=== PATIENT | female | born 1985 | race Caucasian/White ===

== ENCOUNTER 2019-10-01 06:51 | Day surgery (SDC) | payer BC ==
[2019-09-30 09:39] LABS: BLOOD UREA NITROGEN,BUN 13 mg/dL (7.0-18.0); CARBON DIOXIDE,CO2 26.5 mmol/L (21.0-32.0); CHLORIDE,CL 107 mmol/L (98-107); GLUCOSE RANDOM 93 mg/dL (74-106); POTASSIUM,K 4.3 mmol/L (3.5-5.1); SODIUM,NA 141 mmol/L (136-145)
[~2019-10-01 06:51] MED LIST: Sodium Chloride 0.9% 10 ML SDV IV PRN; Sodium Chloride 0.9% 10 ML Syringe FLUSH PRN; Sodium Chloride 0.9% 2.5 ML Syringe FLUSH PRN; ceFAZolin 2 GM in Premix Bag 1 BAG IV ONE
[2019-10-01] MEDS ORDERED: Midazolam 1 MG/ML 2 ML SDV ONE (07:02)
[2019-10-01] MEDS ORDERED: fentaNYL 100 MCG/2 ML SDV ONE ×2 (07:02→08:22)
[2019-10-01] MEDS ORDERED: Propofol 200 MG/20 ML SDV ONE ×2 (07:02→08:17)
--- NOTE | 2019-10-01 07:27 | PCM.PREANE ---
Preanesthetic Assessment - Anesthesia/Transfusion/Family Hx Anesthesia History: Prior Anesthesia Without Reaction Family History of Anesthesia Reaction: No Transfusion History: No Prior Transfusion(s) - Review of Systems General: No Symptoms Pulmonary: No Symptoms Cardiovascular: No Symptoms Gastrointestinal: No Symptoms Neurological: No Symptoms Other: Reports: None - Physical Assessment Height: 5 ft 7 in Weight: 106.594 kg ASA Class: 1 Mental Status: Alert & Oriented x3 Airway Class: Mallampati = 2 Dentition: Reports: Normal Dentition ROM/Head Extension: Full Lungs: Clear to Auscultation, Normal Respiratory Effort Cardiovascular: Regular Rate, Regular Rhythm - Lab Values: Laboratory Last Values WBC 4.10 K/uL (4.0-11.0) 09/30/19 09:15 RBC 4.54 M/uL (4.30-5.90) 09/30/19 09:15 Hgb 14.2 g/dL (12.0-16.0) 09/30/19 09:15 Hct 41.5 % (36.0-46.0) 09/30/19 09:15 MCV 91.4 fL (80.0-98.0) 09/30/19 09:15 MCH 31.3 pg (27.0-32.0) 09/30/19 09:15 MCHC 34.2 g/dL (31.0-37.0) 09/30/19 09:15 RDW Std Deviation 43.6 fl (28.0-62.0) 09/30/19 09:15 RDW Coeff of Joseph 13 % (11.0-15.0) 09/30/19 09:15 Plt Count 228 K/uL (150-400) 09/30/19 09:15 MPV 10.40 fL (7.40-12.00) 09/30/19 09:15 Nucleated RBC % 0.0 /100WBC 09/30/19 09:15 Nucleated RBCs # 0 K/uL 09/30/19 09:15 Sodium 141 mmol/L (136-145) 09/30/19 09:15 Potassium 4.3 mmol/L (3.5-5.1) 09/30/19 09:15 Chloride 107 mmol/L (98-107) 09/30/19 09:15 Carbon Dioxide 26.5 mmol/L (21.0-32.0) 09/30/19 09:15 BUN 13 mg/dL (7.0-18.0) 09/30/19 09:15 Creatinine 1.0 mg/dL (0.6-1.0) 09/30/19 09:15 Est Cr Clr Drug Dosing 77.08 mL/min 09/30/19 09:15 Estimated GFR (MDRD) > 60.0 ml/min 09/30/19 09:15 Glucose 93 mg/dL (74-106) 09/30/19 09:15 Calcium 8.3 mg/dL (8.5-10.1) L 09/30/19 09:15 HCG, Qual NEGATIVE (NEG) 09/30/19 09:15 Blood Type A POSITIVE 09/30/19 09:15 Antibody Screen NEGATIVE 09/30/19 09:15 - Allergies Allergies/Adverse Reactions: Allergies Allergy/AdvReac Type Severity Reaction Status Date / Time No Known Allergies Allergy Verified 10/01/19 07:26 - Blood Blood Available: No - Anesthesia Plan Pre-Op Medication Ordered: None - Acknowledgements Anesthesia Type Planned: General Anesthesia Pt an Appropriate Candidate for the Planned Anesthesia: Yes Alternatives and Risks of Anesthesia Discussed w Pt/Guardian: Yes Pt/Guardian Understands and Agrees with Anesthesia Plan: Yes Additional Comments: pmh: denied plan: ga/lma PreAnesthesia Questionnaire Other HEENT History: wears glasses, top front flipper Cardiovascular History: Reports: None Respiratory History: Reports: None Gastrointestinal History: Reports: None Other Genitourinary History: 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" [employer]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: Musculoskeletal History: Reports: None Neurological History: Reports: None Psychiatric History: Reports: None Endocrine/Metabolic History: Reports: Obesity/BMI 30+ Hematologic History: Reports: None Immunologic History: Reports: None Oncologic (Cancer) History: Reports: None Dermatologic History: Reports: Eczema - Past Surgical History Head Surgeries/Procedures: Reports: None HEENT Surgical History: Reports: None Cardiovascular Surgical History: Reports: None Respiratory Surgical History: Reports: None GI Surgical History: Reports: None Female Surgical History: Reports: Tubal Ligation, Other (See Below) Other Female 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 Endocrine Surgical History: Reports: None Neurological Surgical History: Reports: None Musculoskeletal Surgical History: Reports: None Oncologic Surgical History: Reports: None Dermatological Surgical History: Reports: None - SUBSTANCE USE Smoking Status *Q: Never Smoker - HOME MEDS Home Medications: Home Meds Ascorbate Calcium [Vitamin C] 1 tab PO DAILY 09/28/19 [History] Calcium Carbonate [Calcium] 1 tab PO DAILY 09/28/19 [History] Cholecalciferol (Vitamin D3) [Vitamin D3] 1 tab PO DAILY 09/28/19 [History] Cyanocobalamin (Vitamin B12) [Vitamin B12] 1,000 mcg PO DAILY 09/28/19 [History] Ginseng 1 tab PO DAILY 09/28/19 [History] - CURRENT (IN HOUSE) MEDS Current Meds: Current Medications Lactated Ringer's (Ringers, Lactated) 1,000 mls @ 125 mls/hr IV ASDIRECTED EZEQUIEL Sodium Chloride (Saline Flush) 10 ml FLUSH ASDIRECTED PRN PRN Reason: Keep Vein Open Sodium Chloride (Saline Flush) 2.5 ml FLUSH ASDIRECTED PRN PRN Reason: Keep Vein Open Sodium Chloride (Normal Saline) 10 ml IV ASDIRECTED PRN PRN Reason: IV Use Discontinued Medications Fentanyl (Sublimaze) Confirm Administered Dose 100 mcg .ROUTE .STK-MED ONE Stop: 10/01/19 07:03 Cefazolin Sodium/Dextrose 2 gm (/ Premix) 50 mls @ 100 mls/hr IV ONETIME ONE Stop: 09/30/19 09:24 Midazolam HCl (Versed 1 Mg/Ml) Confirm Administered Dose 2 mg .ROUTE .STK-MED ONE Stop: 10/01/19 07:03 Propofol (Diprivan 20 Ml) Confirm Administered Dose 200 mg .ROUTE .STK-MED ONE Stop: 10/01/19 07:03
[2019-10-01] MEDS ORDERED: Lactated Ringers 1,000 ML IV SCH ×2 (07:30)
[2019-10-01] MEDS ORDERED: Dexamethasone 4 MG/ML 5 ML MDV ONE (08:16)
--- NOTE | 2019-10-01 08:50 | PCM.OPNOTE ---
- General Post-Op/Procedure Note Date of Surgery/Procedure: 10/01/19 Operative Procedure(s): Endometrial ablation Post-Op Diagnosis: Same Anesthesia Technique: General ET Tube Primary Surgeon: Eran Laura Touch Up Edger: Octavia Leon in mLs: 20 Complications: None Condition: Good
--- NOTE | 2019-10-01 08:51 | PCM.DCSUM1 ---
Discharge Summary - Hospital Course Diagnosis: Stroke: No - Discharge Data Discharge Date: 10/01/19 Discharge Disposition: Home, Self-Care 01 Condition: Good - Referral to Home Health Primary Care Physician: Jeanie Ken DO - Patient Summary/Data Operative Procedure(s) Performed: Endometrial ablation - Patient Instructions Diet: Usual Diet as Tolerated Activity: As Tolerated Driving: Do Not Drive Showering/Bathing: May Shower - Discharge Plan Home Medications: Home Meds Ascorbate Calcium [Vitamin C] 1 tab PO DAILY 09/28/19 [History] Calcium Carbonate [Calcium] 1 tab PO DAILY 09/28/19 [History] Cholecalciferol (Vitamin D3) [Vitamin D3] 1 tab PO DAILY 09/28/19 [History] Cyanocobalamin (Vitamin B12) [Vitamin B12] 1,000 mcg PO DAILY 09/28/19 [History] Ginseng 1 tab PO DAILY 09/28/19 [History] - Discharge Summary/Plan Comment DC Time >30 min.: Yes - General Info Date of Service: 10/01/19 Functional Status: Reports: Pain Controlled - Review of Systems General: Reports: No Symptoms HEENT: Reports: No Symptoms Pulmonary: Reports: No Symptoms Cardiovascular: Reports: No Symptoms Gastrointestinal: Reports: No Symptoms Genitourinary: Reports: No Symptoms Musculoskeletal: Reports: No Symptoms Skin: Reports: No Symptoms Neurological: Reports: No Symptoms Psychiatric: Reports: No Symptoms - Patient Data Vitals - Most Recent: Last Vital Signs Temp 36.2 C 10/01/19 07:29 Pulse 72 10/01/19 07:29 Resp 16 10/01/19 07:29 BP 121/69 10/01/19 07:29 Pulse Ox 97 10/01/19 07:29 Weight - Most Recent: 106.594 kg Lab Results - Last 24 hrs: Laboratory Results - last 24 hr 09/30/19 09/30/19 09/30/19 Range/Units 09:15 09:15 09:15 WBC 4.10 (4.0-11.0) K/uL RBC 4.54 (4.30-5.90) M/uL Hgb 14.2 (12.0-16.0) g/dL Hct 41.5 (36.0-46.0) % MCV 91.4 (80.0-98.0) fL MCH 31.3 (27.0-32.0) pg MCHC 34.2 (31.0-37.0) g/dL RDW Std Deviation 43.6 (28.0-62.0) fl RDW Coeff of Joseph 13 (11.0-15.0) % Plt Count 228 (150-400) K/uL MPV 10.40 (7.40-12.00) fL Nucleated RBC % 0.0 /100WBC Nucleated RBCs # 0 K/uL Sodium 141 (136-145) mmol/L Potassium 4.3 (3.5-5.1) mmol/L Chloride 107 (98-107) mmol/L Carbon Dioxide 26.5 (21.0-32.0) mmol/L BUN 13 (7.0-18.0) mg/dL Creatinine 1.0 (0.6-1.0) mg/dL Est Cr Clr Drug Dosing 77.08 mL/min Estimated GFR (MDRD) > 60.0 ml/min Glucose 93 (74-106) mg/dL Calcium 8.3 L (8.5-10.1) mg/dL HCG, Qual NEGATIVE (NEG) Blood Type Antibody Screen 09/30/19 Range/Units 09:15 WBC (4.0-11.0) K/uL RBC (4.30-5.90) M/uL Hgb (12.0-16.0) g/dL Hct (36.0-46.0) % MCV (80.0-98.0) fL MCH (27.0-32.0) pg MCHC (31.0-37.0) g/dL RDW Std Deviation (28.0-62.0) fl RDW Coeff of Joseph (11.0-15.0) % Plt Count (150-400) K/uL MPV (7.40-12.00) fL Nucleated RBC % /100WBC Nucleated RBCs # K/uL Sodium (136-145) mmol/L Potassium (3.5-5.1) mmol/L Chloride (98-107) mmol/L Carbon Dioxide (21.0-32.0) mmol/L BUN (7.0-18.0) mg/dL Creatinine (0.6-1.0) mg/dL Est Cr Clr Drug Dosing mL/min Estimated GFR (MDRD) ml/min Glucose (74-106) mg/dL Calcium (8.5-10.1) mg/dL HCG, Qual (NEG) Blood Type A POSITIVE Antibody Screen NEGATIVE Med Orders - Current: Current Medications Lactated Ringer's (Ringers, Lactated) 1,000 mls @ 125 mls/hr IV ASDIRECTED EZEQUIEL Last Admin: 10/01/19 07:35 Dose: 125 mls/hr Documented by: Sodium Chloride (Saline Flush) 10 ml FLUSH ASDIRECTED PRN PRN Reason: Keep Vein Open Sodium Chloride (Saline Flush) 2.5 ml FLUSH ASDIRECTED PRN PRN Reason: Keep Vein Open Sodium Chloride (Normal Saline) 10 ml IV ASDIRECTED PRN PRN Reason: IV Use Discontinued Medications Dexamethasone (Dexamethasone) Confirm Administered Dose 20 mg .ROUTE .STK-MED ONE Stop: 10/01/19 08:17 Fentanyl (Sublimaze) Confirm Administered Dose 100 mcg .ROUTE .STK-MED ONE Stop: 10/01/19 07:03 Fentanyl (Sublimaze) Confirm Administered Dose 100 mcg .ROUTE .STK-MED ONE Stop: 10/01/19 08:23 Cefazolin Sodium/Dextrose 2 gm (/ Premix) 50 mls @ 100 mls/hr IV ONETIME ONE Stop: 09/30/19 09:24 Lactated Ringer's (Ringers, Lactated) 1,000 mls @ 125 mls/hr IV ASDIRECTED [facility] Midazolam HCl (Versed 1 Mg/Ml) Confirm Administered Dose 2 mg .ROUTE .STK-MED ONE Stop: 10/01/19 07:03 Propofol (Diprivan 20 Ml) Confirm Administered Dose 200 mg .ROUTE .STK-MED ONE Stop: 10/01/19 07:03 Propofol (Diprivan 20 Ml) Confirm Administered Dose 200 mg .ROUTE .STK-MED ONE Stop: 10/01/19 08:18 - Exam General: Reports: Alert, Oriented HEENT: Reports: Pupils Equal, Pupils Reactive, EOMI, Mucous Membr. Moist/[place] Neck: Reports: Supple Lungs: Reports: Clear to Auscultation, Normal Respiratory Effort Cardiovascular: Reports: Regular Rate, Regular Rhythm GI/Abdominal Exam: Normal Bowel Sounds, Soft, Non-Tender, No Organomegaly, No Distention, No Abnormal Bruit, No Mass, Pelvis Stable (Female) Exam: Normal External Exam, Normal Speculum Exam, Normal Bimanual Exam Rectal (Female) Exam: Normal Exam, Normal Rectal Tone Back Exam: Reports: Normal Inspection, Full Range of Motion Extremities: Normal Inspection, Normal Range of Motion, Non-Tender, No Pedal Edema, Normal Capillary Refill Skin: Reports: Warm, Dry, Intact Wound/Incisions: Reports: Healing Well Neurological: Reports: No New Focal Deficit Psy/Mental Status: Reports: Alert, Normal Affect, Normal Mood
--- NOTE | 2019-10-01 10:36 | PCM.POSTAN ---
POST ANESTHESIA ASSESSMENT - MENTAL STATUS Mental Status: Alert, Oriented - VITAL SIGNS Vital Signs: Last Vital Signs Temp 97.3 F 10/01/19 08:51 Pulse 62 10/01/19 09:17 Resp 14 10/01/19 09:17 BP 127/79 10/01/19 09:11 Pulse Ox 99 10/01/19 09:17 - RESPIRATORY Respiratory Status: Respiratory Rate WNL, Airway Patent, O2 Saturation Stable - CARDIOVASCULAR CV Status: Pulse Rate WNL, Blood Pressure Stable - GASTROINTESTINAL GI Status: No Symptoms - POST OP HYDRATION Hydration Status: Adequate & Stable
--- NOTE | 2019-10-01 10:36 | PCM48HPAN ---
Post Anesthesia Note - EVALUATION WITHIN 48HRS OF ANESTHETIC Vital Signs in Normal Range: Yes Patient Participated in Evaluation: Yes Respiratory Function Stable: Yes Airway Patent: Yes Cardiovascular Function Stable: Yes Hydration Status Stable: Yes Pain Control Satisfactory: Yes Nausea and Vomiting Control Satisfactory: Yes Mental Status Recovered: Yes Vital Signs: Last Vital Signs Temp 97.3 F 10/01/19 08:51 Pulse 62 10/01/19 09:17 Resp 14 10/01/19 09:17 BP 127/79 10/01/19 09:11 Pulse Ox 99 10/01/19 09:17
[2019-10-01 13:07] VITALS: BP 110/74; PULSE 52
--- NOTE | 2019-10-01 17:04 | OR ---
SURGEON: Eran Laura MD DATE OF PROCEDURE: 10/01/2019 PREOPERATIVE DIAGNOSIS: Menometrorrhagia. POSTOPERATIVE DIAGNOSIS: Menometrorrhagia. OPERATION PERFORMED: Endometrial ablation. PRIMARY SURGEON: Eran Laura MD WAFER FAB OPERATOR: Octavia Leon. ANESTHESIA: General with endotracheal intubation. ESTIMATED BLOOD LOSS: Less than 20 mL. COMPLICATIONS: None. INDICATIONS FOR SURGERY: [place] referred to the admit note. PROCEDURE IN DETAIL: The patient brought to the OR, properly identified, and after adequate level of anesthesia, the patient was placed in lithotomy position, prepped and draped in sterile fashion as usual. Straight catheter was used to empty the bladder and then cervix sequentially dilated to accommodate the small hysteroscope. Hysteroscopy was performed and there was no polyp and documentation of the endometrial lining was done. Once we did that, the cystoscope was removed, and the MyoSure ablation was in place, and after measuring the uterus and adjusted the ablation device to the measurement, the machine went and did the electronic checking and passed the electronic checking. Once passed electronic checking, we started the ablation for 2 minutes without any problem. After finishing the ablation, the device was removed and hysteroscopy reperformed and it showed adequate ablation and that was documented with the hysteroscopy. Satisfied with these findings, the hysteroscope was removed and the procedure ended. Instrument count was normal and after that the patient moved to recovery room in stable general condition. NENITA / SUZY /[id number]
== END 2019-10-01 10:30 | disposition home or self-care (01) ==
LOC: MW.SDS 06:51
PROVIDERS: ATTEND Obstetrics & Gynecology
DX: N92.1 Excessive and frequent menstruation with irregular cycle (principal); E66.9 Obesity, unspecified; Z68.37 Body mass index [BMI] 37.0-37.9, adult; Z79.899 Other long term (current) drug therapy
CPT/HCPCS: 36415; 58563; 80048; 84703; 85027; 86850; 86900; 86901; J1100; J2250; J2704; J3010; J7120

== ENCOUNTER 2020-04-07 06:39 | Day surgery (SDC) | payer BC ==
[2020-04-04 10:15] LABS: BLOOD UREA NITROGEN,BUN 10 mg/dL (7.0-18.0); CHLORIDE,CL 105 mmol/L (98-107); GLUCOSE RANDOM 89 mg/dL (74-106); POTASSIUM,K 3.5 mmol/L (3.5-5.1); SODIUM,NA 138 mmol/L (136-145)
[~2020-04-07 06:39] MED LIST changes: +Lactated Ringers 1,000 ML IV SCH; -Sodium Chloride 0.9% 10 ML Syringe FLUSH PRN
[2020-04-07] MEDS ORDERED: Midazolam 1 MG/ML 2 ML SDV ONE (06:43)
[2020-04-07] MEDS ORDERED: Propofol 200 MG/20 ML SDV ONE (06:43)
[2020-04-07] MEDS ORDERED: fentaNYL 250 MCG/5 ML SDV ONE (06:44)
[2020-04-07] MEDS ORDERED: Ondansetron 4 MG/2 ML SDV ONE (06:45)
[2020-04-07] MEDS ORDERED: Lidocaine 2% 5 ML SDV ONE (06:45)
[2020-04-07] MEDS ORDERED: Glycopyrrolate 0.2 MG/ML SDV ONE (06:45)
[2020-04-07] MEDS ORDERED: Ketorolac 30 MG/ML SDV ONE (06:45)
[2020-04-07] MEDS ORDERED: Rocuronium Bromide 50 MG/5 ML Syringe ONE (06:45)
--- NOTE | 2020-04-07 07:19 | PCM.PREANE ---
Preanesthetic Assessment - Anesthesia/Transfusion/Family Hx Anesthesia History: Prior Anesthesia Without Reaction Family History of Anesthesia Reaction: No Transfusion History: No Prior Transfusion(s) - Review of Systems General: No Symptoms Pulmonary: No Symptoms Cardiovascular: No Symptoms Gastrointestinal: No Symptoms Neurological: No Symptoms Other: Reports: None - Physical Assessment NPO Status Date: 04/06/20 Vital Signs: Last Vital Signs Temp 97.5 F 04/07/20 06:52 Pulse 92 04/07/20 06:52 Resp 16 04/07/20 06:52 BP 142/90 H 04/07/20 06:52 Pulse Ox 95 04/07/20 06:52 Height: 5 ft 6 in Weight: 104.78 kg ASA Class: 2 Mental Status: Alert & Oriented x3 Airway Class: Mallampati = 2 Dentition: Reports: Normal Dentition ROM/Head Extension: Full Lungs: Clear to Auscultation, Normal Respiratory Effort Cardiovascular: Regular Rate, Regular Rhythm - Lab Values: Laboratory Last Values WBC 5.78 K/uL (4.0-11.0) 04/04/20 09:45 RBC 4.77 M/uL (4.30-5.90) 04/04/20 09:45 Hgb 14.6 g/dL (12.0-16.0) 04/04/20 09:45 Hct 43.6 % (36.0-46.0) 04/04/20 09:45 MCV 91.4 fL (80.0-98.0) 04/04/20 09:45 MCH 30.6 pg (27.0-32.0) 04/04/20 09:45 MCHC 33.5 g/dL (31.0-37.0) 04/04/20 09:45 RDW Std Deviation 43.7 fl (28.0-62.0) 04/04/20 09:45 RDW Coeff of Joseph 13 % (11.0-15.0) 04/04/20 09:45 Plt Count 226 K/uL (150-400) 04/04/20 09:45 MPV 10.70 fL (7.40-12.00) 04/04/20 09:45 Nucleated RBC % 0.0 /100WBC 04/04/20 09:45 Nucleated RBCs # 0 K/uL 04/04/20 09:45 Sodium 138 mmol/L (136-145) 04/04/20 09:45 Potassium 3.5 mmol/L (3.5-5.1) 04/04/20 09:45 Chloride 105 mmol/L (98-107) 04/04/20 09:45 Carbon Dioxide 24.0 mmol/L (21.0-32.0) 04/04/20 09:45 BUN 10 mg/dL (7.0-18.0) 04/04/20 09:45 Creatinine 1.0 mg/dL (0.6-1.0) 04/04/20 09:45 Est Cr Clr Drug Dosing TNP 04/04/20 09:45 Estimated GFR (MDRD) > 60.0 ml/min 04/04/20 09:45 Glucose 89 mg/dL (74-106) 04/04/20 09:45 Calcium 9.0 mg/dL (8.5-10.1) 04/04/20 09:45 HCG, Qual NEGATIVE (NEG) 04/04/20 09:45 Blood Type A POSITIVE 04/04/20 09:45 Antibody Screen NEGATIVE 04/04/20 09:45 - Allergies Allergies/Adverse Reactions: Allergies Allergy/AdvReac Type Severity Reaction Status Date / Time No Known Allergies Allergy Verified 04/07/20 07:08 - Blood Blood Available: No - Anesthesia Plan Pre-Op Medication Ordered: None - Acknowledgements Anesthesia Type Planned: General Anesthesia Pt an Appropriate Candidate for the Planned Anesthesia: Yes Alternatives and Risks of Anesthesia Discussed w Pt/Guardian: Yes Pt/Guardian Understands and Agrees with Anesthesia Plan: Yes PreAnesthesia Questionnaire HEENT History: Reports: Other (See Below) Other HEENT History: wears glasses, top front flipper Cardiovascular History: Reports: None Respiratory History: Reports: None Gastrointestinal History: Reports: None Genitourinary History: Reports: Other (See Below) Other Genitourinary History: 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" 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: Musculoskeletal History: Reports: None Other Musculoskeletal History: hx fx wrist Neurological History: Reports: None Psychiatric History: Reports: None Endocrine/Metabolic History: Reports: Obesity/BMI 30+ Hematologic History: Reports: None Immunologic History: Reports: None Oncologic (Cancer) History: Reports: None Dermatologic History: Reports: Eczema - Infectious Disease History Infectious Disease History: Reports: Chicken Pox Other Infectious Disease History: when a child - Past Surgical History Head Surgeries/Procedures: Reports: None HEENT Surgical History: Reports: None Cardiovascular Surgical History: Reports: None Respiratory Surgical History: Reports: None GI Surgical History: Reports: None Female Surgical History: Reports: Tubal Ligation, Other (See Below) Other Female 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 Endocrine Surgical History: Reports: None Neurological Surgical History: Reports: None Musculoskeletal Surgical History: Reports: None Oncologic Surgical History: Reports: None Dermatological Surgical History: Reports: None - SUBSTANCE USE Tobacco Use Status *Q: Never Tobacco User - HOME MEDS Home Medications: Home Meds Ascorbate Calcium [Vitamin C] 1 tab PO DAILY 09/28/19 [History] Cholecalciferol (Vitamin D3) [Vitamin D3] 1 tab PO DAILY 09/28/19 [History] Cyanocobalamin (Vitamin B12) [Vitamin B12] 1,000 mcg PO DAILY 09/28/19 [History] Ginseng 1 tab PO DAILY 09/28/19 [History] buPROPion HCL [Wellbutrin Xl] 150 mg PO DAILY 04/04/20 [History] - CURRENT (IN HOUSE) MEDS Current Meds: Current Medications Lactated Ringer's (Ringers, Lactated) 1,000 mls @ 125 mls/hr IV ASDIRECTED EZEQUIEL Last Admin: 04/07/20 06:59 Dose: 125 mls/hr Documented by: Sodium Chloride (Saline Flush) 10 ml FLUSH ASDIRECTED PRN PRN Reason: Keep Vein Open Sodium Chloride (Saline Flush) 2.5 ml FLUSH ASDIRECTED PRN PRN Reason: Keep Vein Open Sodium Chloride (Normal Saline) 10 ml IV ASDIRECTED PRN PRN Reason: IV Use Discontinued Medications Fentanyl (Sublimaze) Confirm Administered Dose 250 mcg .ROUTE .STK-MED ONE Stop: 04/07/20 06:45 Glycopyrrolate (Robinul) Confirm Administered Dose 0.8 mg .ROUTE .STK-MED ONE Stop: 04/07/20 06:46 Cefazolin Sodium/Dextrose 2 gm (/ Premix) 50 mls @ 100 mls/hr IV ONETIME ONE Stop: 04/04/20 09:38 Ketorolac Tromethamine (Toradol) Confirm Administered Dose 30 mg .ROUTE .STK-MED ONE Stop: 04/07/20 06:46 Lidocaine (Xylocaine-Mpf 2%) Confirm Administered Dose 5 ml .ROUTE .STK-MED ONE Stop: 04/07/20 06:46 Midazolam HCl (Versed 1 Mg/Ml) Confirm Administered Dose 2 mg .ROUTE .STK-MED ONE Stop: 04/07/20 06:44 Ondansetron HCl (Zofran) Confirm Administered Dose 4 mg .ROUTE .STK-MED ONE Stop: 04/07/20 06:46 Propofol (Diprivan 20 Ml) Confirm Administered Dose 200 mg .ROUTE .STK-MED ONE Stop: 04/07/20 06:44 Rocuronium [place] (Rocuronium [place]) Confirm Administered Dose 50 mg .ROUTE .STK-MED ONE Stop: 04/07/20 06:46
[2020-04-07] MEDS ORDERED: Sodium Chloride 0.9% 20 ML ONE (07:44)
[2020-04-07] MEDS ORDERED: ceFAZolin 1 GM Vial ONE (07:44)
[2020-04-07] MEDS ORDERED: Fluorescein 5 ML Vial ONE (08:17)
[2020-04-07] MEDS ORDERED: Furosemide 40 MG/4 ML VIAL ONE (08:18)
[2020-04-07] MEDS ORDERED: fentaNYL 100 MCG/2 ML SDV IVPUSH PRN (08:26)
[2020-04-07] MEDS ORDERED: HYDROmorphone 2 MG/ML Syringe ONE (08:33)
[2020-04-07] MEDS: Ketorolac 30 MG/ML SDV IVPUSH ONE ×2 (09:00→18:26)
[2020-04-07] MEDS ORDERED: Promethazine 25 MG/ML SDV IM PRN (09:04)
[2020-04-07] MEDS ORDERED: Morphine 4 MG/ML Syringe IVPUSH PRN (09:04)
[2020-04-07] MEDS ORDERED: Acetaminophen/oxyCODONE 325-5 MG Tab PO PRN ×2 (09:04)
--- NOTE | 2020-04-07 09:07 | PCM.OPNOTE ---
- General Post-Op/Procedure Note Date of Surgery/Procedure: 04/07/20 Operative Procedure(s): TVH,cysto Post-Op Diagnosis: Same Anesthesia Technique: General ET Tube Primary Surgeon: Eran Laura EBL in mLs: 200 Complications: None Condition: Good
--- NOTE | 2020-04-07 10:13 | PCM.POSTAN ---
POST ANESTHESIA ASSESSMENT - MENTAL STATUS Mental Status: Alert, Oriented - VITAL SIGNS Vital Signs: Last Vital Signs Temp 97.5 F 04/07/20 09:08 Pulse 67 04/07/20 10:04 Resp 14 04/07/20 10:04 BP 116/69 04/07/20 10:04 Pulse Ox 94 L 04/07/20 10:04 - RESPIRATORY Respiratory Status: Respiratory Rate WNL, Airway Patent, O2 Saturation Stable - CARDIOVASCULAR CV Status: Pulse Rate WNL, Blood Pressure Stable - GASTROINTESTINAL GI Status: No Symptoms - POST OP HYDRATION Hydration Status: Adequate & Stable
[2020-04-07] MEDS: Acetaminophen 1,000 MG in Premix Bag 1 BAG IV PRN ×2 (11:04→21:24)
[2020-04-07] MEDS: Ondansetron 4 MG/2 ML SDV IVPUSH PRN ×2 (11:55→18:35)
[2020-04-07] MEDS: Sodium Chloride 0.9% 10 ML Syringe FLUSH PRN ×3 (11:56→18:35)
--- OUTSIDE RECORDS SUMMARY | 2020-04-07 14:22 | XMSREPORT ---
:1985 Author Name Rodolfo Horner Address Unavailable Unavailable , Care Team Providers Name Role Phone Valentín Nair Unavailable Unavailable Small, C Unavailable Unavailable Unavailable Unavailable Unavailable Reason for Referral For: Menorrhagia TVH, Possible TLH, Cystoscopy scheduled for 04/07/2020 Assessments Assessment Narrative:Patient have menometrorrhagia she status post failed endometrial ablation she is part of 400 for allof them delivered vaginally patient here for preoperative visit she is most likely is skin have a vaginal hysterectomy evaluate the patient after examination under anesthesia and make the final decision. Informed consent discussed with the patient all her question answered the patient signed the informed consent the preoperative instructions given to her and she is sent to the lab for her preoperative lab workAssessed Problems:MenorrhagiaPreop examination Problems Encounter for laboratory testing for COVID-19 virus (V01.79) (Z20.822) Postop check (V67.00) (Z09) Preop examination (V72.84) (Z01.818) Menorrhagia (626.2) (N92.0) Allergies and Adverse Reactions Seasonal (Allergy) Medications Wellbutrin SR 150 MG Oral Tablet Extended Release 12 Hour Start: 07-Mar-2020 Refills: 0 Procedures Request for Surgery Date: 21-Mar-2020 CORONAVIRUS COVID-19 PCR PHL Date: 04-Apr-2020 History of Tubal ligation Status: Comple rylee Immunizations Immunizations not documented Family History Family history of diabetes mellitus (V18.0) (Z83.3) Status: Active Family history of human immunodeficiency virus infection (V1 8.8) Status: Active (Z83.0) Family history of hyperthyroidism (V18.19) (Z83.49) Status: Active Family history of neuropathy (V17.2) (Z82.0) Status: Active Plan of Treatment Appointment; Eran Laura M.D. Start: 13-Apr-2020 13:45 Re quest Planned Goals not documented Results PHQ9 Laboratory: [facility] 07-Mar-2020 14:21 PHQ9 9 Vital Signs 04-Apr-2020 9:11 Systolic 132 mm[Hg] Comments: Location: LUE; Position: Sitting Diastolic 86 mm[Hg] Comments: Location: LUE; Position: Sitting Height 60 in Weight 231.6 lb BMI Calculated 45.23 kg/m2 BSA Calculated 1.99 m2 Temperature 98.6 f Heart Rate 95 /min Respiration 18 /min O2 Saturation 98 % 07-Mar-2020 14:10 Systolic 120 mm[Hg] Comments: Location: LUE; Position: Sitting Diastolic 86 mm[Hg] Comments: Location: LUE; Position: Sitting Height 60 in Weight 234 lb BMI Calculated 45.7 kg/m2 BSA Calculated 2 m2 Temperature 98.2 f Heart Rate 99 /min Respiration 18 /min O2 Saturation 99 % Encounters Appointment; Eran Laura M.D. 07-Mar-2020 14:00 Encounter Diagnosis: Problem not documented Appointment; Eran Laura M.D. 09-Oct-2019 15:00 Encounter Diagnosis: Problem not documented Appointment; [facility]-Staff, Nurse 30-Sep-2019 9:30 Encounter Diagnosis: Problem not documented Appointment; [facility]-Staff, Nurse 30-Sep-2019 9:00 Encounter Diagnosis: Problem not documented Appointment; Eran Laura M.D. 30-Sep-2019 8:30 Encounter Diagnosis: Problem not documented Appointment; Eran Laura M.D. 31-Aug-2019 16:00 Encounter Diagnosis: Problem not documented Appointment; Eran Laura M.D. 04-Apr-2020 9:00 Encounter Diagnosis: Problem not documented
[2020-04-07] MEDS ORDERED: Ketorolac 30 MG/ML SDV IVPUSH PRN (15:00)
--- NOTE | 2020-04-07 17:58 | OR ---
SURGEON: Eran Laura MD DATE OF PROCEDURE: 04/07/2020 PREOPERATIVE DIAGNOSES: 1. Menometrorrhagia. 2. Fibroid uterus. 3. Failed endometrial ablation. POSTOPERATIVE DIAGNOSES: 1. Menometrorrhagia. 2. Fibroid uterus. 3. Failed endometrial ablation. OPERATIONS PERFORMED: 1. Total vaginal hysterectomy. 2. Vaginal bilateral salpingectomy preserving both ovaries. 3. Cystoscopy. OUTSOLE COMPRESSOR: OR tech. ANESTHESIA: General endotracheal intubation, Stanislaw Mike and Dr. Rasmussen. ESTIMATED BLOOD LOSS: 200 mL. COMPLICATIONS: None. FINDING: Uterus about 10- to 11-week size. INDICATION FOR SURGERY: Gray referred to the admit note. PROCEDURE IN DETAIL: The patient was brought to the OR, properly identified, and after adequate level of anesthesia, the patient was placed in lithotomy, was prepped and draped in sterile fashion as usual and short-weighted speculum placed in the vagina and straight catheter was used to empty the bladder. Once we did that, then a single-tooth tenaculum applied to the cervix and cervix was pulled downward, and using the electrocautery, circular incision in the vaginal mucosa was done, and then, the posterior cul-de-sac was entered posteriorly with Carrasco scissors, and the posterior cul-de-sac tagged with peritoneum and the vagina with 2-0 Vicryl pop-off. Short weighted speculum was placed with extended long weighted speculum. Uterosacral ligament identified from both sides, clamped with a curved Zeppelin, transected, and suture ligated with 2-0 Vicryl in a Jemima fashion. The same thing was done with the cardinal ligament on both sides. Then, the cervicovesical space was entered anteriorly sharply with the Metzenbaum and bladder was retracted completely away from the operative field and the anterior cul-de-sac was entered with the Metzenbaum scissor. Then, the broad ligament was clamped with curved Zeppelin from both sides and transected and suture ligated with 2-0 Vicryl pop-off. The uterine vessel suture ligated at this step. The round ligament from both sides clamped with a curved Zeppelin, transected, and suture ligated with 2-0 Vicryl pop-off. Next, the uterus was delivered posteriorly and the superior pedicle was taken and the tubes included with the specimen, and the ovaries preserved on both sides and the superior pedicle transected, and the uterus and both tubes removed vaginally. Next, the superior pedicle was tied twice, first with Endoloop and then a free tie. After that, inspection of the operative field showed no oozing, no bleeding. We asked the Anesthesia personnel at this time to give the patient fluorescein, and we proceeded to close the vaginal cuff vaginally with 2- 0 Vicryl interrupted [id number] sutures. Once that is accomplished, cystoscopy was performed. The bladder was intact. Both ureteric orifices seen with dye coming from both of them. Thus, the patency of both ureters verified, satisfied with this procedure, and the procedure ended. The instrument and sponge counts were correct. The patient tolerated the procedure well, went to recovery room in stable general condition. NENITA / SUZY /[id number]
[2020-04-08 06:10] LABS: BLOOD UREA NITROGEN,BUN 9 mg/dL (7.0-18.0); CARBON DIOXIDE,CO2 24.7 mmol/L (21.0-32.0); CHLORIDE,CL 108 mmol/L (98-107); GLUCOSE RANDOM 112 mg/dL (74-106); POTASSIUM,K 3.4 mmol/L (3.5-5.1); SODIUM,NA 142 mmol/L (136-145)
[2020-04-08 08:28] VITALS: BP 124/76; PULSE 83
--- NOTE | 2020-04-08 09:43 | PCM.SURGPN ---
- General Info Date of Service: 04/08/20 POD#: 1 Functional Status: Reports: Pain Controlled - Review of Systems General: Reports: No Symptoms HEENT: Reports: No Symptoms Pulmonary: Reports: No Symptoms Cardiovascular: Reports: No Symptoms Gastrointestinal: Reports: No Symptoms Genitourinary: Reports: No Symptoms Musculoskeletal: Reports: No Symptoms Skin: Reports: No Symptoms Neurological: Reports: No Symptoms Psychiatric: Reports: No Symptoms - Patient Data Vitals - Most Recent: Last Vital Signs Temp 36.4 C 04/08/20 08:28 Pulse 83 04/08/20 08:28 Resp 14 04/08/20 08:28 BP 124/76 04/08/20 08:28 Pulse Ox 95 04/08/20 08:28 Weight - Most Recent: 103.419 kg I&O - Last 24 Hours: Intake & Output 04/07/20 04/08/20 04/08/20 22:59 06:59 14:59 Intake Total 952 Output Total 600 Balance 352 Lab Results Last 24 Hrs: Laboratory Results - last 24 hr 04/08/20 04/08/20 Range/Units 05:04 05:04 WBC 9.89 (4.0-11.0) K/uL RBC 3.95 L (4.30-5.90) M/uL Hgb 12.3 (12.0-16.0) g/dL Hct 36.1 (36.0-46.0) % MCV 91.4 (80.0-98.0) fL MCH 31.1 (27.0-32.0) pg MCHC 34.1 (31.0-37.0) g/dL RDW Std Deviation 43.2 (28.0-62.0) fl RDW Coeff of Joseph 13 (11.0-15.0) % Plt Count 224 (150-400) K/uL MPV 10.80 (7.40-12.00) fL Neut % (Auto) 62.9 (48.0-80.0) % Lymph % (Auto) 27.1 (16.0-40.0) % [place] % (Auto) 8.9 (0.0-15.0) % Eos % (Auto) 1.1 (0.0-7.0) % Baso % (Auto) 0.0 (0.0-1.5) % Neut # (Auto) 6.2 H (1.4-5.7) K/uL Lymph # (Auto) 2.7 H (0.6-2.4) K/uL [place] # (Auto) 0.9 H (0.0-0.8) K/uL Eos # (Auto) 0.1 (0.0-0.7) K/uL Baso # (Auto) 0.0 (0.0-0.1) K/uL Nucleated RBC % 0.0 /100WBC Nucleated RBCs # 0 K/uL Sodium 142 (136-145) mmol/L Potassium 3.4 L (3.5-5.1) mmol/L Chloride 108 H (98-107) mmol/L Carbon Dioxide 24.7 (21.0-32.0) mmol/L BUN 9 (7.0-18.0) mg/dL Creatinine 1.0 (0.6-1.0) mg/dL Est Cr Clr Drug Dosing 74.21 mL/min Estimated GFR (MDRD) > 60.0 ml/min Glucose 112 H (74-106) mg/dL Calcium 8.4 L (8.5-10.1) mg/dL Med Orders - Current: Current Medications Lactated Ringer's (Ringers, Lactated) 1,000 mls @ 125 mls/hr IV ASDIRECTED [facility] Last Admin: 04/07/20 06:59 Dose: 125 mls/hr Documented by: Acetaminophen 1,000 mg/ Premix 100 mls @ 400 mls/hr IV Q6H PRN PRN Reason: Pain Last Admin: 04/07/20 21:24 Dose: 400 mls/hr Documented by: Ketorolac Tromethamine (Toradol) 30 mg IVPUSH Q6H PRN PRN Reason: Pain (severe 7-10) Stop: 04/12/20 15:01 Last Admin: 04/07/20 15:13 Dose: 30 mg Documented by: Morphine Sulfate (Morphine) 4 mg IVPUSH Q2H PRN PRN Reason: Pain (severe 7-10) Ondansetron HCl (Zofran) 4 mg IVPUSH Q6H PRN PRN Reason: Nausea/Vomiting Last Admin: 04/07/20 18:35 Dose: 4 mg Documented by: Oxycodone/Acetaminophen (Percocet 325-5 Mg) 1 tab PO Q4H PRN PRN Reason: Pain (moderate 4-6) Oxycodone/Acetaminophen (Percocet 325-5 Mg) 2 tab PO Q4H PRN PRN Reason: Pain (moderate 4-6) Promethazine HCl (Phenergan) 25 mg IM Q6H PRN PRN Reason: Nausea/Vomiting Last Admin: 04/07/20 15:13 Dose: 25 mg Documented by: Sodium Chloride (Saline Flush) 10 ml FLUSH ASDIRECTED PRN PRN Reason: Keep Vein Open Last Admin: 04/07/20 18:35 Dose: 10 ml Documented by: Sodium Chloride (Saline Flush) 2.5 ml FLUSH ASDIRECTED PRN PRN Reason: Keep Vein Open Sodium Chloride (Normal Saline) 10 ml IV ASDIRECTED PRN PRN Reason: IV Use Discontinued Medications Cefazolin Sodium (Ancef) Confirm Administered Dose 2 gm .ROUTE .STK-MED ONE Stop: 04/07/20 07:45 Fentanyl (Sublimaze) Confirm Administered Dose 250 mcg .ROUTE .STK-MED ONE Stop: 04/07/20 06:45 Fentanyl (Sublimaze) 50 mcg IVPUSH Q5M PRN PRN Reason: Pain Fluorescein Sodium (Ak-Fluor) Confirm Administered Dose 5 ml .ROUTE .STK-MED ONE Stop: 04/07/20 08:18 Furosemide (Lasix) Confirm Administered Dose 40 mg .ROUTE .STK-MED ONE Stop: 04/07/20 08:19 Glycopyrrolate (Robinul) Confirm Administered Dose 0.8 mg .ROUTE .STK-MED ONE Stop: 04/07/20 06:46 Hydromorphone HCl (Dilaudid) Confirm Administered Dose 2 mg .ROUTE .STK-MED ONE Stop: 04/07/20 08:34 Cefazolin Sodium/Dextrose 2 gm (/ Premix) 50 mls @ 100 mls/hr IV ONETIME ONE Stop: 04/04/20 09:38 Sodium Chloride (Normal Saline) Confirm Administered Dose 20 mls @ as directed .ROUTE .STK-MED ONE Stop: 04/07/20 07:45 Ketorolac Tromethamine (Toradol) Confirm Administered Dose 30 mg .ROUTE .STK-MED ONE Stop: 04/07/20 06:46 Ketorolac Tromethamine (Toradol) 30 mg IVPUSH ONETIME ONE Stop: 04/07/20 09:05 Last Admin: 04/07/20 18:26 Dose: Not Given Documented by: Lidocaine (Xylocaine-Mpf 2%) Confirm Administered Dose 5 ml .ROUTE .STK-MED ONE Stop: 04/07/20 06:46 Midazolam HCl (Versed 1 Mg/Ml) Confirm Administered Dose 2 mg .ROUTE .STK-MED ONE Stop: 04/07/20 06:44 Ondansetron HCl (Zofran) Confirm Administered Dose 4 mg .ROUTE .STK-MED ONE Stop: 04/07/20 06:46 Propofol (Diprivan 20 Ml) Confirm Administered Dose 200 mg .ROUTE .STK-MED ONE Stop: 04/07/20 06:44 Rocuronium [place] (Rocuronium [place]) Confirm Administered Dose 50 mg .ROUTE .STK-MED ONE Stop: 04/07/20 06:46 - Exam Wound/Incisions: Healing Well General: Alert, Oriented HEENT: Pupils Equal Neck: Supple Lungs: Clear to Auscultation, Normal Respiratory Effort Cardiovascular: Regular Rate, Regular Rhythm GI/Abdominal Exam: Normal Bowel Sounds, Soft, Non-Tender, No Organomegaly, No Distention, No Abnormal Bruit, No Mass, Pelvis Stable Extremities: Normal Inspection, Normal Range of Motion, Non-Tender, No Pedal Edema, Normal Capillary Refill Skin: Warm, Dry, Intact Neurological: No New Focal Deficit Psy/Mental Status: Alert, Normal Affect, Normal Mood Sepsis Event Note - Evaluation Sepsis Screening Result: No Definite Risk - Focused Exam Vital Signs: Vital Signs Temp Pulse Resp BP BP Pulse Ox 04/08/20 08:28 36.4 C 83 14 124/76 95 04/08/20 04:38 36.5 C 86 18 127/66 93 L 04/07/20 23:40 36.9 C 97 17 115/59 L 93 L - Problem List Review Problem List Initiated/Reviewed/Updated: Yes - My Orders Last 24 Hours: Active Orders 24 hr Category Date Time Status Patient Status [ADT] Routine ADT 04/07/20 09:04 Active Antiembolic Devices [RC] PER UNIT ROUTINE Care 04/07/20 09:05 Active Notify Provider Vital Signs [RC] ASDIRECTED Care 04/07/20 09:04 Active Overnight Pulse Oximetry [RC] Click to Edit Care 04/07/20 09:21 Active Oxygen Therapy [RC] ASDIRECTED Care 04/07/20 09:04 Active RT Incentive Spirometry [RC] Q2HWA Care 04/07/20 09:04 Active Up With Assistance [RC] PER UNIT ROUTINE Care 04/07/20 09:04 Active Up ad Joellen [RC] PER UNIT ROUTINE Care 04/07/20 09:04 Active Vital Signs [RC] PER UNIT ROUTINE Care 04/07/20 09:04 Active Regular Diet [DIET] Diet 04/07/20 Lunch Active Acetaminophen/oxyCODONE [Percocet 325-5 MG] Med 04/07/20 09:04 Active 1 tab PO Q4H PRN Acetaminophen/oxyCODONE [Percocet 325-5 MG] Med 04/07/20 09:04 Active 2 tab PO Q4H PRN Ketorolac [Toradol] Med 04/07/20 15:00 Active 30 mg IVPUSH Q6H PRN Morphine Med 04/07/20 09:04 Active 4 mg IVPUSH Q2H PRN Ondansetron [Zofran] Med 04/07/20 09:04 Active 4 mg IVPUSH Q6H PRN Promethazine [Phenergan] Med 04/07/20 09:04 Active 25 mg IM Q6H PRN Peripheral IV Discontinue [OM.PC] Routine Oth 04/07/20 09:04 Ordered Sequential Compression Device [OM.PC] Per Unit Routine Oth 04/07/20 09:04 Ordered Resuscitation Status Routine Resus Stat 04/07/20 09:04 Ordered Medication Orders Lactated Ringer's (Ringers, Lactated) 1,000 mls @ 125 mls/hr IV ASDIRECTED EZEQUIEL Last Admin: 04/07/20 06:59 Dose: 125 mls/hr Documented by: GIORGIO Acetaminophen 1,000 mg/ Premix 100 mls @ 400 mls/hr IV Q6H PRN PRN Reason: Pain Last Admin: 04/07/20 21:24 Dose: 400 mls/hr Documented by: Infusion: 04/07/20 11:19 Dose: 400 mls/hr Documented by: Admin: 04/07/20 11:04 Dose: 400 mls/hr Documented by: CELY Ketorolac Tromethamine (Toradol) 30 mg IVPUSH Q6H PRN PRN Reason: Pain (severe 7-10) Stop: 04/12/20 15:01 Last Admin: 04/07/20 15:13 Dose: 30 mg Documented by: KATALINA Morphine Sulfate (Morphine) 4 mg IVPUSH Q2H PRN PRN Reason: Pain (severe 7-10) Ondansetron HCl (Zofran) 4 mg IVPUSH Q6H PRN PRN Reason: Nausea/Vomiting Last Admin: 04/07/20 18:35 Dose: 4 mg Documented by: Admin: 04/07/20 11:55 Dose: 4 mg Documented by: CELY Oxycodone/Acetaminophen (Percocet 325-5 Mg) 1 tab PO Q4H PRN PRN Reason: Pain (moderate 4-6) Oxycodone/Acetaminophen (Percocet 325-5 Mg) 2 tab PO Q4H PRN PRN Reason: Pain (moderate 4-6) Promethazine HCl (Phenergan) 25 mg IM Q6H PRN PRN Reason: Nausea/Vomiting Last Admin: 04/07/20 15:13 Dose: 25 mg Documented by: CELY Sodium Chloride (Saline Flush) 10 ml FLUSH ASDIRECTED PRN PRN Reason: Keep Vein Open Last Admin: 04/07/20 18:35 Dose: 10 ml Documented by: Admin: 04/07/20 15:19 Dose: 10 ml Documented by: Admin: 04/07/20 11:56 Dose: 10 ml Documented by: CELY Sodium Chloride (Saline Flush) 2.5 ml FLUSH ASDIRECTED PRN PRN Reason: Keep Vein Open Sodium Chloride (Normal Saline) 10 ml IV ASDIRECTED PRN PRN Reason: IV Use - Assessment Assessment (Free Text/Narrative):: Post hysterectomy patient is doing well she is voiding and no bleeding on regular diet her pain is under control - Plan Plan (Free Text/Narrative):: We will send the patient on today the post hysterectomy instruction is given to hertraction on her diet she is given a prescription for Narco 5/325 for postoperative pain and she was given an appointment to come to the office in one week
== END 2020-04-08 10:05 | disposition home or self-care (01) ==
LOC: MW.SDS 06:39 → MW.MS 10:28 → MW.SDS 04-08 10:05
PROVIDERS: ATTEND Obstetrics & Gynecology
DX: D25.1 Intramural leiomyoma of uterus (principal); N80.0 Endometriosis of uterus; N72 Inflammatory disease of cervix uteri; Z79.899 Other long term (current) drug therapy; E66.9 Obesity, unspecified; Z68.36 Body mass index [BMI] 36.0-36.9, adult
CPT/HCPCS: 36415; 58262; 80048; 84703; 85025; 85027; 86850; 86900; 86901; 88307; J0131; J0690; J1170; J1885; J1940; J2250; J2405; J2550; J2704; J3010; J3490; J7120; 00944

== ENCOUNTER 2024-02-01 11:40 | Emergency (ER) | payer BC ==
[2024-02-01] MEDS ORDERED: Sodium Chloride 0.9% 2.5 ML Syringe FLUSH PRN (11:56)
[2024-02-01 12:03] LABS: BASOPHILS ABSOLUTE AUTO 0.02 K/uL (0.00-0.20); BASOPHILS PERCENT AUTO 0.2 % (0.0-1.0); EOSINOPHILS ABSOLUTE AUTO 0.14 K/uL (0.00-0.45); EOSINOPHILS PERCENT AUTO 1.7 % (0.0-6.0); HEMATOCRIT 38.5 % (37.0-47.0); HEMOGLOBIN 13.8 g/dL (12.0-16.0); IMMATURE GRAN ABSOLUTE AUTO 0.03 K/uL (0.00-0.05); IMMATURE GRAN PERCENT AUTO 0.4 % (0.0-0.4); LYMPHOCYTES ABSOLUTE AUTO 1.53 K/uL (1.00-4.80); MEAN CORPUSCULAR HEMOGLOBIN 31.7 pg (28.0-32.0); MEAN CORPUSCULAR HGB CONC 35.8 g/dL (32.0-36.0); MEAN CORPUSCULAR VOLUME 88.3 fL (83.0-99.0); MEAN PLATELET VOLUME 10.3 fL (9.4-12.3); MONOCYTES ABSOLUTE AUTO 0.42 K/uL (0.00-0.80); MONOCYTES PERCENT AUTO 5.2 % (0.0-8.0); NEUTROPHILS ABSOLUTE AUTO 5.91 K/uL (1.80-7.70); NEUTROPHILS PERCENT AUTO 73.5 % (41.0-71.0); PLATELET COUNT,PLT 222 K/uL (150-400); RED BLOOD CELL COUNT 4.36 M/uL (4.10-5.30); WHITE BLOOD CELL COUNT,WBC 8.05 K/uL (3.9-11.3)
[2024-02-01 12:13] LABS: A/G RATIO 1.2 (0.9-1.6); ALBUMIN 3.6 g/dL (3.4-5.0); BILIRUBIN TOTAL 0.5 mg/dL (0.2-1.0); CARBON DIOXIDE,CO2 21.8 mmol/L (21.0-32.0); CREATININE 1.1 mg/dL (0.6-1.0); EST CRCL DRUG DOSING (CG) 64.92 mL/min; POTASSIUM,K 4.5 mmol/L (3.5-5.1); PROTEIN TOTAL,TP 6.7 g/dL (6.4-8.2)
[2024-02-01 12:18] LABS: MAGNESIUM 1.6 mg/dL (1.8-2.4)
[2024-02-01 12:42] LABS: APPEARANCE,URINE CLEAR; BILIRUBIN,URINE NEGATIVE (NEGATIVE); COLOR,URINE YELLOW; GLUCOSE,URINE NEGATIVE (NEGATIVE); KETONES,URINE 15 mg/dL (NEGATIVE); LEUKOCYTE ESTERASE,URINE NEGATIVE (NEGATIVE); NITRITE,URINE NEGATIVE (NEGATIVE); OCCULT BLOOD,URINE NEGATIVE (NEGATIVE); PH,URINE 7.5 (5.0-8.0); PROTEIN,URINE NEGATIVE (NEGATIVE); UROBILINOGEN,URINE 0.2 EU/dL (<2.0)
[2024-02-01] MEDS: Sodium Chloride 0.9% 10 ML Syringe FLUSH PRN (12:43)
[2024-02-01] MEDS: Magnesium Sulfate/Water Premix 2 GM in Premix Bag 1 BAG IV STA (12:43)
[2024-02-01 15:55] VITALS: BP 120/69; PULSE 88
== END 2024-02-01 15:54 | disposition home or self-care (01) ==
LOC: MW.ED 11:40
DX: R42 Dizziness and giddiness (principal); R11.2 Nausea with vomiting, unspecified; E83.42 Hypomagnesemia; E66.9 Obesity, unspecified; Z79.899 Other long term (current) drug therapy; Z68.39 Body mass index [BMI] 39.0-39.9, adult; Z75.8 Other problems related to medical facilities and other health care
CPT/HCPCS: 36415; 70450; 72125; 80053; 81003; 83690; 83735; 84484; 84703; 85025; 93005; 96365; 99284; J3475; J3490

== ENCOUNTER 2024-11-22 14:33 | Emergency (ER) | payer OTHER ==
[2024-11-22 15:30] LABS: APPEARANCE,URINE SLT CLOUDY; GLUCOSE,URINE NEGATIVE (NEGATIVE); OCCULT BLOOD,URINE LARGE (NEGATIVE)
[2024-11-22 15:46] LABS: EPITHELIAL CELLS,URINE MODERATE (NONE-FEW)
[2024-11-22] MEDS ORDERED: Sodium Chloride 0.9% 2.5 ML Syringe FLUSH PRN (16:10)
[2024-11-22] MEDS ORDERED: Sodium Chloride 0.9% 10 ML Syringe FLUSH PRN (16:10)
[2024-11-22] MEDS: Ondansetron 4 MG/2 ML SDV IVPUSH ONE (16:25)
[2024-11-22] MEDS: Ketorolac 30 MG/ML SDV IVPUSH ONE ×2 (16:25→18:01)
[2024-11-22 16:39] LABS: BASOPHILS ABSOLUTE AUTO 0.01 K/uL (0.00-0.20); BASOPHILS PERCENT AUTO 0.1 % (0.0-1.0); EOSINOPHILS ABSOLUTE AUTO 0.01 K/uL (0.00-0.45); EOSINOPHILS PERCENT AUTO 0.1 % (0.0-6.0); IMMATURE GRAN ABSOLUTE AUTO 0.02 K/uL (0.00-0.05); IMMATURE GRAN PERCENT AUTO 0.2 % (0.0-0.4); LYMPHOCYTES ABSOLUTE AUTO 0.64 K/uL (1.00-4.80); LYMPHOCYTES PERCENT AUTO 5.4 % (24.0-44.0); MEAN PLATELET VOLUME 10.5 fL (9.4-12.3); MONOCYTES ABSOLUTE AUTO 0.17 K/uL (0.00-0.80); MONOCYTES PERCENT AUTO 1.4 % (0.0-8.0); NEUTROPHILS ABSOLUTE AUTO 11.11 K/uL (1.80-7.70); NEUTROPHILS PERCENT AUTO 92.8 % (41.0-71.0); NRBC ABSOLUTE 0.00 K/uL (0.00-0.02); NRBC PERCENT 0.0 /100WBC (0.0-0.2); PLATELET COUNT,PLT 275 K/uL (150-400); RED BLOOD CELL COUNT 4.38 M/uL (4.10-5.30); WHITE BLOOD CELL COUNT,WBC 11.96 K/uL (3.9-11.3)
[2024-11-22 17:01] LABS: A/G RATIO 1.2 (0.9-1.6); ALANINE AMINOTRANSFERASE,ALT 33.0 IU/L (14-63); ASPARTATE AMNIOTRANSFERASE,AST 21.0 IU/L (15-37); BILIRUBIN TOTAL 0.4 mg/dL (0.2-1.0); BLOOD UREA NITROGEN,BUN 10.0 mg/dL (7.0-18.0); CARBON DIOXIDE,CO2 21.1 mmol/L (21.0-32.0); CHLORIDE,CL 108.0 mmol/L (98-107); CREATININE 1.0 mg/dL (0.6-1.0); EST CRCL DRUG DOSING (CG) 73.45 mL/min; GLUCOSE RANDOM 121.0 mg/dL (74-106); POTASSIUM,K 4.1 mmol/L (3.5-5.1); PROTEIN TOTAL,TP 7.4 g/dL (6.4-8.2); SODIUM,NA 141.0 mmol/L (136-145)
[2024-11-22 17:10] LABS: ESTIMATED GFR 73.0 mL/min (>60)
[2024-11-22 17:23] VITALS: BP 126/81; PULSE 70
== END 2024-11-22 18:31 | disposition home or self-care (01) ==
LOC: MW.ED 14:33
DX: N13.2 Hydronephrosis with renal and ureteral calculous obstruction (principal); K80.20 Calculus of gallbladder without cholecystitis without obstruction; Z79.899 Other long term (current) drug therapy; Z86.69 Personal history of other diseases of the nervous system and sense organs
CPT/HCPCS: 36415; 74176; 80053; 81001; 81025; 83605; 83690; 85025; 96361; 96374; 96375; 96376; 99284; A9270; J1885; J2405; J7030; J1171